=== PATIENT | male | born 1945 | race Caucasian/White ===

== ENCOUNTER 2017-01-20 19:50 | Inpatient (IN) | payer MEDICARE, OTHER ==
--- NOTE | ~2017-01-20 | CO ---
Unit #: [id number] #: [id number] Patient: MARINO BHANDARI [id number] [facility] [address] [facility]. [place], [place] [address] [id number] Tristan MR#: [id number] NAME: MARINO BHANDARI ROOM: 313 Age: 71 Sex: M Admission Date: 01/21/2017 : 1945 Attending Physician: Lenin Florian M.D. Primary Care Physician: Huma Nick M.D. Consultation Date: 01/21/2017 CONSULTATION REPORT REASON FOR CONSULT End-stage renal disease, hyperkalemia. HISTORY OF PRESENT ILLNESS Thank you very much for having us see this patient again. Mr. Marino Bhandari is a 71-year-old male with the history of end-stage renal disease on hemodialysis every Friday, Friday, and Friday under my care who did not show up for dialysis yesterday when I was rounding there. I talked to the nurse there and they called the patient. He apparently had fallen in the bathroom and was very weak and tired and decided not to come. He was going to reschedule for today or tomorrow, at which time I instructed the nurse to give the patient a call and tell him to come to the emergency room at which time he did. Apparently, the patient was in his normal state of health until yesterday morning. He apparently in the bathroom passed out. He hit his head although no injury and woke up very tired and weak, could barely walk, went back to bed until he presented here. He states he started having increased shortness of breath as well yesterday afternoon. No chest pain or chest heaviness. He presented here to the emergency room and was noted to have blood work done at 1830 that showed a potassium of 6.2. I was called at 2:15 a.m., almost 8 hours later, about this patient being admitted. STAT dialysis was ordered and read back to me, and patient still has not had dialysis. The patient states he is still short of breath but a little bit better than it was at 4 a.m. that he had when he had breathing treatments. He denies any chest pain or chest heaviness. He is still very tired and weak. No nausea, one episode of vomiting when he was admitted last night. He denies any fevers, chills or cough. PAST MEDICAL HISTORY 1. History of end-stage renal disease on hemodialysis again every Friday, Friday, and Friday. 2. History of congestive heart failure. 3. History of atrial fibrillation in the past. 4. History of severe hypertension. 5. History of COPD. 6. History of osteoarthritis. 7. History of hyperlipidemia. 8. History of diabetes mellitus. HOME MEDICATIONS Include: 1. Clonidine 0.2 mg b.i.d. 2. Minoxidil 5 mg b.i.d. Unit #: [id number] #: [id number] Patient: MARINO BHANDARI 3. Gabapentin 100 mg b.i.d. 4. Amlodipine 10 mg daily. 5. Metoprolol 100 mg daily. 6. Lisinopril 40 mg daily (?) 7. Pravastatin 40 mg daily. 8. Zolpidem 10 mg h.s. 9. Benadryl p.r.n. for itching. 10. Tramadol 50 mg p.r.n. for headaches. ALLERGIES No known drug allergies. SOCIAL HISTORY Previous smoker, none recently. Occasional alcohol, nothing heavy. He is . FAMILY HISTORY Noncontributory. REVIEW OF SYSTEMS As mentioned in the HPI. Denies any fevers, chills, visual problems, sinus problems. No cough or hemoptysis. No neck pain or neck stiffness. No chest pain or chest heaviness or palpitations. Again, he has had some increased shortness of breath. No severe abdominal pain. One episode of vomiting. He denies any urinary symptoms although does not make a lot of urine. He has had no increased swelling. No recent seizures or strokes or skin rashes. Again, passing out and the weakness severely in his legs is the major complaint. PHYSICAL EXAMINATION VITAL SIGNS: Temperature max is 98.5, pulse 88 to 110, blood pressure 156 to 217 over 51 to 88. HEENT: Normocephalic, atraumatic. Pupils equal, round and reactive to light. Extraocular muscles are intact. Hearing appears to be normal. Mouth is clear, no erythema or exudate. NECK: Supple. No adenopathy. HEART: He appears to have a questionable maybe an irregular rhythm although his EKG did not show this. He has a 2/6 systolic ejection murmur. No rubs were appreciated. LUNGS: Clear bilaterally. No wheezes, rhonchi or rales. ABDOMEN: Bowel sounds positive. Nontender, soft. EXTREMITIES: He has no significant lower extremity swelling. He has a fistula in his right arm with a good thrill. He has a bruise and skin tear on his left upper arm. NEUROLOGIC: He is alert and oriented. Very weak and tired. GENITOURINARY: Deferred. DIAGNOSTIC STUDIES LABORATORY: BUN 91, creatinine 11.1, glucose 132, sodium 138, potassium 6.2, bicarb 19, calcium 9.2, albumin 4.2. INR none done. Hemoglobin 10.9, white count 11,200, platelets 116,000. His urinalysis showed 1+ protein, 250 glucose, 0-2 rbc's, 5-10 wbc's, no bacteria. Urine culture is pending. ASSESSMENT AND PLAN 1. End-stage renal disease. The patient's dialysis was normally supposed to be yesterday. Hyperkalemia. Dialysis was ordered STAT and has not been done yet. I discussed this with dialysis and states Unit #: [id number] #: [id number] Patient: MARINO BHANDARI they are on their way. Will again dialyze as soon as possible and a 2 potassium bath today and recheck a BMP later today to make sure his potassium has improved. Check labs again in the morning. Will remove 3 liters with dialysis today. 2. Hypertension. Blood pressure is elevated upon presentation. Agree with restarting his medications and follow the trends and adjust as indicated. 3. Hyperkalemia, as mentioned above. 4. Syncopal episode, questionable loss of consciousness. I do not know if it is just related to hyperkalemia or if it was related to some other issue. Certainly hyperkalemia can cause severe weakness but usually not at 6 level but again, everyone is different. Any further workup or treatment per primary. Patient did have a CT scan done of his head in the emergency room that showed no acute abnormality. Dictated byViktoriya King M.D. Medardo TD: 01/21/2017 15:49 JOB #: [id number] CONSULTATION REPORT X Anne King MD CONSULTATION REPORT
--- NOTE | ~2017-01-20 | HP ---
Unit #: [id number] #: [id number] Patient: MARINO HAHN [id number] [address] [place], [place] [address] [id number] I MR#: [id number] NAME: MARINO HAHN ROOM: 313 Age: 71 Sex: M Admission Date: 01/21/2017 : 1945 Attending Physician: Raj Busby M.D. Primary Care Physician: Huma Nick M.D. HISTORY AND PHYSICAL CHIEF COMPLAINT Passed out. HISTORY OF PRESENT ILLNESS The patient is a 71-year-old male who states that he arose to go to his dialysis appointment today when he suddenly passed out. He states he fell backwards hitting his head. He states that he has no chest pain, no shortness of breath, no palpitations. Some mild pain in his head and right shoulder, status post fall. PAST MEDICAL HISTORY ESRD, congestive heart failure, hypertension, COPD, diabetes, osteoarthritis. PAST SURGICAL HISTORY The patient denies any significant surgical history. SOCIAL HISTORY The patient stopped smoking two years ago. He states he drinks alcohol occasionally. Denies illegal drug use. FAMILY HISTORY Reviewed and noncontributory in this 71-year-old male. ALLERGIES No known drug allergies. HOME MEDICATIONS Clonidine 0.2 mg p.o. b.i.d.; minoxidil 5 mg b.i.d.; Neurontin 100 mg p.o. b.i.d.; Norvasc 10 mg daily; metoprolol tartrate 100 mg daily; lisinopril 40 mg daily; pravastatin 40 mg daily; zolpidem 10 mg p.o. q.h.s.; hydroxyzine 25 mg p.o. p.r.n. itch; tramadol 50 mg p.o. q.8 hours p.r.n. REVIEW OF SYSTEMS Twelve point review of systems obtained, negative except as in HPI. PHYSICAL EXAMINATION VITAL SIGNS: Temperature 98.5, pulse 96, blood pressure 217/78. GENERAL: 71-year-old male in no acute distress. Appears stated age. HEENT: Pupils equal, round, reactive to light and accommodation. Extraocular movements intact. Mucous membranes dry. NECK: Supple. No JVD or lymphadenopathy. HEART: Regular rate and rhythm. 3/6 systolic ejection murmur. No gallops or rubs. LUNGS: Clear to auscultation bilaterally. Unit #: [id number] #: [id number] Patient: MARINO HAHN ABDOMEN: Nontender and nondistended. Positive bowel sounds. EXTREMITIES: No clubbing, cyanosis or edema. Warm and dry. PSYCH: Alert and oriented x3. Affect is appropriate. NEUROLOGIC: Cranial nerves II-XII intact grossly. Patient moves all extremities equal and with purpose. SKIN: No rashes, bruises or ulcers. MUSCULOSKELETAL: No muscle or joint swelling. He has got right shoulder pain, status post fall. DIAGNOSTIC STUDIES LABORATORY STUDIES: Creatinine 11.1, potassium 6.2, white count 11.2, hemoglobin 10.9, platelets 116. Cardiac enzymes negative x2. IMAGING STUDIES: CT of cervical spine shows no acute abnormalities. CT of head shows no acute abnormalities. ASSESSMENT AND PLAN 1. Syncope, cause is not entirely clear: The patient states it occurred shortly after rising. There is question of a vasovagal episode. Patient is being admitted to telemetry bed and will monitor for arrhythmias. Patient denies chest pain or palpitations. 2. 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 3. Hypertension: I will continue the patient's home medications and the p.r.n. hydralazine. 4. Diabetes: Start the patient on low dose sliding scale insulin. 5. Prophylaxis: Patient was started on SCDs. Dictated by Bruna Mendez/ariadna TD: 01/21/2017 06:39 JOB #: [id number] HISTORY AND PHYSICAL X Raj Busby MD X HISTORY AND PHYSICAL
--- NOTE | ~2017-01-20 | CT52 ---
[facility] A Service of [facility] RADIOLOGY TEXT RESULTS PATIENT: MARINO HAHN LOCATION: C3A 313-01 : [birth year] UNIT #: [id number] AGE: [address]: Lenin Florian MD SEX: M ORDER DR: [id number] [facility] [address] [facility]. [place], [place] [address] [id number] MR#: [id number] Acc #: [id number] NAME: MARINO HAHN : 1945 SEX: M STUDY DATE/TIME: 01/20/2017 19:24 UNIT: BEN ROOM: STUDY DESCRIPTION: CT Cervical Spine Wo Cont Attending Physician: Er Doctor Generic Ordering Physician: Yohan Rivera M.D. Primary Care Physician: Huma Nick M.D. MEDICAL IMAGING REPORT This report is preliminary unless electronic signature is present EXAM Cervical spine CT, no contrast, 01/20/2017 INDICATIONS 71-year-old male with history of trauma, legs gave out this morning, fell backwards in the bathroom, complaining of headache and neck pain. The accident occurred this morning. TECHNIQUE Noncontrast CT of the cervical spine was performed. Sagittal and coronal reformats performed. No comparisons. This CT exam was performed with one or more of the following radiation dose reduction techniques: automatic exposure control, adjustment of mA and/or kV according to patient size, and iterative reconstruction. FINDINGS CT C-SPINE: Dens and lateral masses intact. There is cervical straightening which is nonspecific but may reflect muscle spasm. No acute fracture, alignment is preserved. There is degenerative disc disease at multiple cervical levels, most severe at C6-7. There is probable least mild central canal stenosis at C6-7 but no critical central canal stenosis. Anterior soft tissues unremarkable. There is multilevel facet arthropathy in the aye-ld-fmxhy cervical levels, left greater than right. Multilevel mild uncovertebral spurring. There is mild multilevel foraminal stenosis. Atherosclerotic calcifications are present. Included lung apices clear. Included thyroid unremarkable. IMPRESSION 1. There is motion degradation. These were the best images possible. [facility] A Service of [facility] RADIOLOGY TEXT RESULTS PATIENT: MARINO HAHN LOCATION: C3A 313-01 : [birth year] UNIT #: [id number] AGE: [address]: Lenin Florian MD SEX: M ORDER DR: 2. No acute fracture, malalignment or critical central canal or foraminal stenosis. 3. Multilevel degenerative changes related to facet arthropathy and degenerative disc disease most severe at C6-7. 4. Atherosclerotic disease. Dictated by... Justice Salas M.D. THIS IS AN ELECTRONICALLY VERIFIED REPORT Justice Salas M.D. at 01/21/2017 10:19 AM Qiana TD: 01/21/2017 01:59 JOB #: [id number] MEDICAL IMAGING REPORT COPY
--- NOTE | ~2017-01-20 | CT71 ---
[facility] A Service of [facility] & [facility] RADIOLOGY TEXT RESULTS PATIENT: MARINO HAHN LOCATION: C3A 313-01 : [birth year] UNIT #: [id number] AGE: [address]: Lenin Florian MD SEX: M ORDER DR: [id number] [facility] [address]. [place], [place] [address] [id number] E MR#: [id number] Acc #: [id number] NAME: MARINO HAHN : 1945 SEX: M STUDY DATE/TIME: 01/20/2017 19:24 UNIT: BEN ROOM: STUDY DESCRIPTION: CT Head Wo Contrast Attending Physician: Er Doctor Generic Ordering Physician: Ed Jose Rivera M.D. Primary Care Physician: Huma Nick M.D. MEDICAL IMAGING REPORT This report is preliminary unless electronic signature is present EXAM Head CT without contrast, 01/20/2017 HISTORY Headache and neck pain status post fall backwards in bathroom today after legs gave out this morning. TECHNIQUE This CT exam was performed with one or more of the following radiation dose reduction techniques: Automatic exposure control, adjustment of mA and/or kV according to patient size, and iterative reconstruction. FINDINGS Axial images of the brain obtained without contrast show generalized atrophy. There are chronic ischemic changes seen around the ventricles. There is no evidence of mass effect, hemorrhage, or edema and no midline shift is seen. No acute changes are noted. IMPRESSION Atrophy with chronic ischemic changes. No acute changes are seen. Dictated by... Dudley Huerta M.D. THIS IS AN ELECTRONICALLY VERIFIED REPORT Dduley Huerta M.D. at 01/21/2017 4:18 PM KRT/qiana TD: 01/21/2017 01:55 JOB #: [id number] MEDICAL IMAGING REPORT [facility] A Service [facility] & [facility] RADIOLOGY TEXT RESULTS PATIENT: MARINO HAHN LOCATION: C3A 313-01 : [birth year] UNIT #: [id number] AGE: [address]: Lenin Florian MD SEX: M ORDER DR: COPY
--- NOTE | ~2017-01-20 | CT57 ---
[facility] A Service of [facility] & [facility] RADIOLOGY TEXT RESULTS PATIENT: MARINO HAHN LOCATION: [facility] 313-01 : [birth year] UNIT #: [id number] AGE: [address]: Lenin Florian MD SEX: M ORDER DR: [id number] [facility] [address] [facility]. [place], [place] [address] [id number] I MR#: [id number] Acc #: [id number] NAME: MARINO HAHN : 1945 SEX: M STUDY DATE/TIME: 01/21/2017 16:15 UNIT: C3A PCU ROOM: [facility] STUDY DESCRIPTION: CT Chest Wo Cont Attending Physician: Lenin Florian M.D. Ordering Physician: Raj Busby M.D. Primary Care Physician: Huma Nick M.D. MEDICAL IMAGING REPORT This report is preliminary unless electronic signature is present EXAM CT chest without contrast INDICATIONS Shortness of breath and dyspnea for [address] exam was performed with one or more of the following radiation dose reduction techniques: automatic exposure control, adjustment of mA and/or kV according to patient size, and iterative reconstruction. Axial CT images were obtained from the thoracic inlet through the dome of the diaphragm. No intravenous contrast material was administered. FINDINGS This patient is noted to have small bilateral pleural effusions right greater than left. There is some ground-glass in attenuation seen at the lung bases bilaterally. Some of this may simply reflect some atelectasis, but nonspecific pneumonitis could also have this appearance. The thyroid gland, trachea and esophagus appear unremarkable. There is no pericardial effusion. There are extensive coronary artery calcifications as well as atherosclerotic involvement of the thoracic aorta. Main pulmonary arteries enlarged measuring up to 3.5 cm which can be seen in the setting of pulmonary cereal hypertension. There is bilateral gynecomastia. Shotty mediastinal lymph nodes are noted. There is a 1.5 x 1.4 cm subcarinal node. It appears larger than on the prior CT from January 2015, but certainly could be reactive. 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 Similar findings were present on the prior CT from February 02, 2015. I do not see any acute abnormalities within the upper abdomen. [facility]. [facility] A Service of [facility] RADIOLOGY TEXT RESULTS PATIENT: MARNIO HAHN LOCATION: C3A 313-01 : [birth year] UNIT #: [id number] AGE: [address]: Lenin Florian MD SEX: M ORDER DR: Review of bony windows do not demonstrate any aggressive osseous abnormalities. IMPRESSION 1. Small bilateral pleural effusions, right greater than left, as well as ground glass attenuation seen at the lung bases bilaterally. Some of the appearance may be related to atelectasis, but certainly pneumonitis should be considered given the patient's history. The patient is noted have some prominent mediastinal lymph nodes. These certainly could be reactive given the findings at the lung bases. The patient does have 2 noncalcified pulmonary nodules, one seen within the right upper lobe measures about 6 mm in size while the other is seen in the left lower lobe and measures about 8 millimeters in size. These are indeterminate. I would suggest a short-term CT followup in 6 months to document stability or resolution. 2. Enlargement main pulmonary artery. This finding can be seen in the setting of pulmonary arterial hypertension. 3. 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 Similar findings were present on prior exam from February 02, 2015. These could be better assessed with flow protocol CT or MRI. Dictated by... Rosalie Eubanks M.D. THIS IS AN ELECTRONICALLY VERIFIED REPORT Rosalie Eubanks M.D. at 01/22/2017 4:46 PM AFF/ea TD: 01/21/2017 22:59 JOB #: [id number] MEDICAL IMAGING REPORT COPY
--- NOTE | ~2017-01-20 | DS ---
Unit #: [id number] #: [id number] Patient: MARINO HAHN [id number] [address] [address] [id number] MR#: [id number] NAME: MARINO HAHN ROOM: 313 Age: 71 Sex: M Admission Date: 01/21/2017 : 1945 Discharge Date: 01/23/2017 Attending Physician: Lenin Florian M.D. Primary Care Physician: Huma Nick M.D. DISCHARGE SUMMARY ADMISSION DIAGNOSES 1. Syncope, unclear etiology. 2. Hyperkalemia. 3. Hypertension. 4. Diabetes. DISCHARGE DIAGNOSES 1. Dyspnea. 2. Chest pressure, resolved. 3. Volume overload. 4. End-stage renal disease. 5. Diastolic dysfunction. 6. Chronic obstructive pulmonary disease exacerbation, resolved. 7. Bilateral small pulmonary nodules with recommendation for followup repeat CT of the chest in six months to ensure resolution/stability. SURGICAL DENTAL ASSISTANT Abhilash King M.D., Nephrology. PROCEDURE Hemodialysis, January 21, 2017 and January 22, 2017. DIAGNOSTIC STUDIES LABORATORY: Discharge labs: WBC 10.5, hemoglobin 11.1, hematocrit 33.2, platelets 164,000. Sodium 134, potassium 5.5, chloride 94, CO2 of 22, glucose 178, BUN 103, creatinine 10, eGFR 5.5, calcium 9.1. Preliminary blood culture results x2: No growth after 24 hours. Urine culture: Final no growth at 48 hours. Hepatitis B surface antigen negative. Accu-Cheks today 145-227. Troponin-I 0.03, less than 0.03, less than 0.05. Admission D-dimer, November 29, 2016, of 1627. IMAGING: Bilateral lower extremity duplex Doppler, January 22, 2017: Impression: Negative examination. No evidence of lower extremity DVT. CT of the chest without contrast: Impression: Please refer to complete report. Small bilateral pleural effusions, right greater than left as well as ground glass attenuation seen at lung bases bilaterally. Some prominent mediastinal lymph nodes, could be reactive given findings at the lung bases. Two noncalcified pulmonary nodules, one seen within the right upper lobe, measures 6 mm while the other is seen in the left lower lobe and measures about 8 mm. These are indeterminate. Short-term CT followup in six months to document stability or resolution recommended. Enlargement of main pulmonary artery which can be seen in the setting of pulmonary arterial hypertension. 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 Similar findings present on prior exam on February 02, 2015. C-spine CT noncontrast, January 20, 2017: Impression: Motion degradation. No acute fracture malalignment or critical central canal or foraminal stenosis. Multilevel degenerative changes related to facet arthropathy and degenerative disk disease most severe at C6-7. Atherosclerotic disease. CT of the head without contrast on January 20, 2017: Impression: Atrophy with chronic ischemic changes. No acute changes seen. CARDIOVASCULAR: A 2D echocardiogram: Conclusion: Technically extremely limited study. Left ventricular systolic function normal with digitally estimated EF of 50% to 55%. Aortic valve leaflets were sclerotic with no stenosis. Mild mitral regurgitation. Mild tricuspid regurgitation. Right ventricular systolic pressure 26 mmHg and no echogenic evidence of tamponade. CONDITION Stable. DISPOSITION Home. DISCHARGE MEDICATIONS 1. Prednisone taper (10 mg tab) 40 mg p.o. daily x3 days, then 30 mg p.o. daily x3 days, then 20 mg p.o. daily x3 days, then 10 mg p.o. daily x3 days until finished (#30, no refills). 2. Neurontin 100 mg p.o. b.i.d. 3. Hydroxyzine HCl 25 mg tablet one p.o. q.6 hours p.r.n. itching. 4. Ambien 10 mg p.o. at bedtime as needed for insomnia. 5. Amlodipine besylate 10 mg p.o. every morning. 6. Lopressor 100 mg p.o. every morning. 7. Pravastatin sodium 40 mg p.o. at bedtime. 8. Catapres 0.2 mg p.o. b.i.d. 9. Minoxidil 2.5 mg p.o. daily. 10. Levofloxacin 500 mg tab one p.o. q.48 hours x3 additional doses, prescription written #3, no refills. DISCHARGE INSTRUCTIONS 1. The patient is to call and schedule a followup appointment to see his primary care physician in one to two weeks. 2. He is to follow up for hemodialysis tomorrow at his usual hemodialysis center per orders of Dr. King. The patient is to call and schedule a followup appointment in Dr. King's office per Dr. King's recommendations. 3. The patient is to call and schedule followup appointment with primary care physician for repeat CT of the chest within six months to followup on bilateral pulmonary nodules. 4. Renal diet. HOSPITAL COURSE The patient is a 71-year-old male who presented to [facility] on the dates of admission with chief complaint of "passed out." The patient was evaluated in the emergency department by Dr. Busby. The patient is noted to have syncope of unclear etiology. Given the question of vasovagal episode, the patient was admitted to quality assurance monitor body unit. Unit #: [id number] #: [id number] Patient: MARINO HAHN The patient was noted to be hyperkalemic with potassium of 6.2. WBC 11.2, hemoglobin 10.9, platelet count 116,000. The patient has a history of end-stage renal disease and hemodialysis. Dr. King was consulted for STAT hemodialysis. Please refer to history and physical report for complete details. The patient was evaluated by Dr. King who noted that the patient was typically scheduled for hemodialysis on Friday, Friday, Friday. The patient missed the dialysis the day prior to admission. Orders were given for STAT dialysis. The patient's blood pressure was noted to be elevated and the patient's medications were restarted and trends were followed with adjustments as indicated. Per review of the patient's chart, the patient's home dose of Zestril was held upon admission and the remainder of his other home medications were continued. The patient was placed on a renal diet, strict I and O's. Urinalysis and blood cultures were collected, both of which returned negative for infection. The patient received dialysis on the schedule as dictated above during the hospital course. He has orders to receive hemodialysis again tomorrow at his regular hemodialysis center under orders of Dr. King. He has been evaluated by Dr. King today and cleared for discharge home. The patient's home dose of Zestril will not be restarted prior to discharge. The patient has had no further episodes of syncope. The patient complained of dyspnea without chest pain on the date of admission. The patient was noted to have a history of COPD. A 2D echocardiogram was ordered with results as dictated above. CT of the chest without contrast to rule out pneumonia and PE were ordered. The patient's D-dimer returned elevated as dictated above. The patient was started on IV Solu-Medrol as well as IV Levaquin with pharmacy to dose. DuoNeb were ordered as well. Cardiac enzymes were ordered which returned negative. Bilateral lower extremity duplex venous Doppler study was also performed with interpretation as above. The patient has been evaluated by Dr. Florian today and cleared for discharge home. With regard to CT of the chest report, as dictated above. I have spoken with the patient personally today prior to discharge and informed him about the need to followup for repeat CT scan to ensure resolution/stability of bilateral pulmonary nodules in six months and he has verbalized understanding of this information. Dictated by... Christa Youngblood A.P.R.N. for Bruna Ariza/susie TD: 01/24/2017 10:35 JOB #: [id number] Unit #: [id number] #: [id number] Patient: MARINO HAHN DISCHARGE SUMMARY X Christa Youngblood APRN DISCHARGE SUMMARY
--- NOTE | ~2017-01-20 | US84 ---
[id number] [facility] [address] [place], [place] [address] [id number] MR#: [id number] Acc #: [id number] NAME: MARINO HAHN : 1945 SEX: M STUDY DATE/TIME: 01/22/2017 17:38 UNIT: [id number] PCU ROOM: 313 STUDY DESCRIPTION: US LE Veins Complete Hardy Stdy Attending Physician: Lenin Florian M.D. Ordering Physician: Lenin Florian M.D. Primary Care Physician: Huma Nick M.D. MEDICAL IMAGING REPORT This report is preliminary unless electronic signature is present EXAM Bilateral lower extremity venous duplex 01/22/2017 HISTORY Bilateral lower extremity pain and swelling for 5 days. Evaluate for deep vein thrombosis. TECHNIQUE Venous ultrasound examination of both lower extremities was performed using grayscale, spectral Doppler and color flow Doppler imaging. FINDINGS The examination is negative. There is no evidence of deep venous thrombus from the groin to the lower calf bilaterally. Visualized greater saphenous veins are also patent. IMPRESSION Negative examination. No evidence of lower extremity deep venous thrombosis. Dictated by... Dudley Huerta M.D. THIS IS AN ELECTRONICALLY VERIFIED REPORT Dudley Huerta M.D. at 01/23/2017 8:08 AM PRESTON/casper TD: 01/22/2017 22:51 JOB #: [id number] MEDICAL IMAGING REPORT COPY
--- NOTE | ~2017-01-20 | EKG ---
PATIENT: MARINO HAHN UNIT #: [id number] Ventricular Rate: 91 BPM Atrial Rate: 91 BPM P-R Interval: 286 ms QRS Duration: 116 ms Q-T Interval: 354 ms QTC Calculation(Bezet): 435 ms P Empire: 55 degrees Calculated R Empire: -41 degrees Calculated T Empire: 64 degrees Diagnosis Line: Sinus rhythm with 1st degree A-V block Diagnosis Line: Left axis deviation Diagnosis Line: Abnormal ECG Diagnosis Line: When compared with ECG of 07-OCT-2012 12:57, Diagnosis Line: DE interval has increased Diagnosis Line: Confirmed by MORIS AMAYA MD ([id number]) on Diagnosis Line: 01/21/2017 11:55:35 AM INTERPRETING MD: BALTAZAR
--- NOTE | ~2017-01-20 | EKG ---
PATIENT: MARINO HAHN UNIT #: [id number] Ventricular Rate: 102 BPM Atrial Rate: 117 BPM QRS Duration: 112 ms Q-T Interval: 324 ms QTC Calculation(Bezet): 422 ms P Burnham: 63 degrees Calculated R Burnham: -31 degrees Calculated T Burnham: 64 degrees Diagnosis Line: Sinus tachycardia with 2nd degree A-V block Diagnosis Line: (Mobitz I) Diagnosis Line: Left axis deviation Diagnosis Line: Non-specific intra-ventricular conduction delay Diagnosis Line: Nonspecific T wave abnormality Diagnosis Line: Abnormal ECG Diagnosis Line: When compared with ECG of 20-JAN-2017 18:04, Diagnosis Line: (unconfirmed) Diagnosis Line: Sinus rhythm is now with 2nd degree A-V block Diagnosis Line: (Mobitz I) Diagnosis Line: Confirmed by MORIS AMAYA MD ([id number]) on Diagnosis Line: 01/21/2017 12:12:52 PM INTERPRETING MD: BALTAZAR
[2017-01-20 18:52] LABS: BASOPHIL# 0.1 X10e3 (0-0.3); BASOPHIL% 0.8 % (0-2.5); EOSINOPHIL# 0.3 X10e3 (0-0.7); HEMATOCRIT 32.5 % (38.0-50.0); HEMOGLOBIN 10.9 gm/dL (13.0-16.0); LYMPHOCYTE# 2.1 X10e3 (1.0-3.5); LYMPHOCYTE% 18.4 % (17.0-45.0); MEAN CELL VOLUME 89.9 FL (83-96); MEAN CORPUSCULAR HGB CONC 33.4 g/dL (30-36); MEAN PLATELET VOLUME 8.7 FL (6.5-11.5); MONOCYTE% 8.6 % (3.0-12.0); NEUTROPHIL# 7.7 X10e3 (1.5-7.1); NEUTROPHIL% 69.2 % (40-75); PLATELET COUNT 116 X10e3 (140-420); RED BLOOD COUNT 3.62 X10e (3.90-5.60); RED CELL DISTRIBUTION WIDTH 15.7 % (11.0-15.5); WHITE BLOOD COUNT 11.2 X10e3 (4.0-10.5)
[2017-01-20 18:54] LABS: DIFF IND NO
[2017-01-20 19:00] LABS: POC - CKMB 2.1 ng/mL (0.0-7.9); POC - TROPONIN <0.05 ng/mL (<=0.05)
[2017-01-20 19:20] LABS: ALBUMIN SERUM 4.2 g/dL (3.5-5.0); BILIRUBIN, DIRECT 0.1 mg/dL (0.0-0.2); BILIRUBIN,INDIRECT 0.9 mg/dL (0.0-0.9); BUN/CREATININE RATIO 8.19; CALCIUM SERUM 9.2 mg/dL (8.4-10.2); CREATININE SERUM 11.1 mg/dL (0.6-1.4); GLOM FILT RATE Estimated 4.9 mL/min (>60); PROTEIN TOTAL SERUM 7.3 g/dL (6.0-8.3)
[2017-01-20 19:22] LABS: POTASSIUM 6.2 mmol/L (3.5-5.1)
[~2017-01-20 19:50] MED LIST: ACETAMINOPHEN325 MG PO; ADRENOID CAPSU1 EACH PO; AMARYL PO; AMBIEN10 MG; AMBIEN10 MG PO; AMLODIPINE BESYL5 MG PO; APRESOLINE PO; ARTIFICIAL TEAR15 M3 OP; ASPIRIN81 M1; ASPIRIN81 M1 PO; AZITHROMYCIN250 MG PO; B6100 MG PO; CLONIDINE HCL0.1 MG PO; CLONIDINE PO; CO Q-10 100 MG1 EACH PO; CO Q10100 MG PO; CO-ENZYME Q-1010 MG PO; COQ-10100 MG PO; CYANOCOBALAM1000 MCG PO; FAMCICLOVIR250 MG PO; FAMVIR250 MG PO; FISH OIL 1,0001 CA2 PO; FISH OIL 1,001000 M1 PO; FISH OIL 1,001000 MG PO; FISH OIL 10001000 MG PO; FLAGYL PO; FUROSEMIDE40 MG PO; GNP B-COMPLEX1 EACH PO; HUMULIN N100 UNITS/ INJ; HYDRALAZINE HC100 MG PO; HYDROCODON-ACE1 EACH PO; LASIX PO; LEVAQUIN250 MG PO; LOPRESSOR PO; LORTAB 7.51 TAB 7.5/ PO; METOPROLOL SUC100 MG PO; METOPROLOL TAR100 MG PO; NEURONTIN100 MG PO; NOVOLIN 70/30 V10 M1 SUBQ; NOVOLOG7030; PERCOCET 51 UDTAB 5/ PO; PHENERGAN25 MG PO; PRAVASTATIN SOD40 MG PO; PREDNISONE PO; SOD BICARBONATE PO; TUMS500 MG PO; VITAL-D RX TABL1 TAB PO; VITAMIN B 6 PO; VITAMIN B-1100 M1 PO; VITAMIN B-121000 MCG PO; ZANAFLEX4 M1 PO; ZESTRIL40 MG PO; [UNRECOGNIZED DRUG - OTHER] PO
[2017-01-20 20:20] LABS: URINE SOURCE CLEAN CATCH
[2017-01-20 20:40] LABS: CULTURE INDICATED? YES; URBCS1 AUWI 0-2 /[HPF] (0-2); URINE APPEARANCE CLEAR; URINE BACTERIA AUWI NEG (NEGATIVE); URINE BILIRUBIN NEG (NEG); URINE BLOOD 1+ (NEG); URINE COLOR YELLOW; URINE GLUCOSE 250 MG/DL (NEG); URINE KETONE NEG (NEG); URINE LEUKOCYTE ESTERASE NEG (NEG); URINE NITRATE NEG (NEG); URINE PROTEIN 1+ (NEG); URINE SPECIFIC GRAVITY 1.014 (1.003-1.035); URINE SQUAMOUS EPITHELIAL CELL NONE SEEN /[HPF]; URINE UROBILINOGEN 0.2 MG/DL (NEG)
[2017-01-20 21:10] LABS: POC - CKMB 1.9 ng/mL (0.0-7.9); POC - TROPONIN <0.05 ng/mL (<=0.05)
[2017-01-21 07:56] LABS: BASOPHIL% 0.4 % (0-2.5); EOSINOPHIL% 0.2 % (0.0-7.0); HEMATOCRIT 31.3 % (38.0-50.0); HEMOGLOBIN 10.5 gm/dL (13.0-16.0); LYMPHOCYTE# 1.2 X10e3 (1.0-3.5); LYMPHOCYTE% 8.9 % (17.0-45.0); MEAN CELL VOLUME 90.6 FL (83-96); MEAN CORPUSCULAR HEMOGLOBIN 30.4 PG (28-34); MEAN CORPUSCULAR HGB CONC 33.5 g/dL (30-36); MEAN PLATELET VOLUME 8.7 FL (6.5-11.5); MONOCYTE# 1.3 X10e3 (0-1.0); NEUTROPHIL# 10.7 X10e3 (1.5-7.1); NEUTROPHIL% 80.5 % (40-75); PLATELET COUNT 107 X10e3 (140-420); RED BLOOD COUNT 3.46 X10e (3.90-5.60); RED CELL DISTRIBUTION WIDTH 15.6 % (11.0-15.5); WHITE BLOOD COUNT 13.3 X10e3 (4.0-10.5)
[2017-01-21 08:00] LABS: DIFF IND NO
[2017-01-21 09:19] LABS: BUN/CREATININE RATIO 8.08; CALCIUM SERUM 8.8 mg/dL (8.4-10.2); GLOM FILT RATE Estimated 4.5 mL/min (>60)
[2017-01-21 09:31] LABS: POTASSIUM 6.5 mmol/L (3.5-5.1)
[2017-01-21 11:10] LABS: %MB 1.4 % (0.0-4.0); MB 2.7 ng/ml
[2017-01-21 18:21] LABS: BUN/CREATININE RATIO 6.08; GLOM FILT RATE Estimated 8.5 mL/min (>60); POTASSIUM 5.3 mmol/L (3.5-5.1)
[2017-01-21 18:22] LABS: CREATININE SERUM 6.9 mg/dL (0.6-1.4)
[2017-01-21 18:41] LABS: MB 2.2 ng/ml
[2017-01-22 09:53] LABS: HEMOGLOBIN 10.8 gm/dL (13.0-16.0); MEAN CELL VOLUME 90.1 FL (83-96); MEAN CORPUSCULAR HEMOGLOBIN 30.5 PG (28-34); MEAN CORPUSCULAR HGB CONC 33.8 g/dL (30-36); MEAN PLATELET VOLUME 10.1 FL (6.5-11.5); RED BLOOD COUNT 3.55 X10e (3.90-5.60); RED CELL DISTRIBUTION WIDTH 15.6 % (11.0-15.5); WHITE BLOOD COUNT 6.7 X10e3 (4.0-10.5)
[2017-01-22 10:38] LABS: ALBUMIN SERUM 3.8 g/dL (3.5-5.0); BILIRUBIN,TOTAL 0.8 mg/dL (0.2-2.0); BUN/CREATININE RATIO 7.38; CALCIUM SERUM 9.2 mg/dL (8.4-10.2); CREATININE SERUM 8.4 mg/dL (0.6-1.4); GLOM FILT RATE Estimated 6.7 mL/min (>60); MAGNESIUM 2.2 mg/dL (1.6-3.0); PHOSPHOROUS 6.6 mg/dL (2.5-4.6); POTASSIUM 5.3 mmol/L (3.5-5.1); PROTEIN TOTAL SERUM 7.1 g/dL (6.0-8.3)
[2017-01-23 07:39] LABS: HEMATOCRIT 33.2 % (38.0-50.0); HEMOGLOBIN 11.1 gm/dL (13.0-16.0); MEAN CELL VOLUME 90.5 FL (83-96); MEAN CORPUSCULAR HEMOGLOBIN 30.2 PG (28-34); MEAN CORPUSCULAR HGB CONC 33.4 g/dL (30-36); RED BLOOD COUNT 3.67 X10e (3.90-5.60); RED CELL DISTRIBUTION WIDTH 15.6 % (11.0-15.5)
[2017-01-23 07:45] LABS: WHITE BLOOD COUNT 10.5 X10e3 (4.0-10.5)
[2017-01-23 08:11] LABS: CALCIUM SERUM 9.1 mg/dL (8.4-10.2); GLOM FILT RATE Estimated 5.5 mL/min (>60)
[2017-01-23 08:24] LABS: BUN/CREATININE RATIO 10.3
[2017-01-23 08:27] LABS: POTASSIUM 5.5 mmol/L (3.5-5.1)
[2017-01-23] MEDS ORDERED: PREDNISONE50 MG PO (17:20)
[2017-01-23] MEDS ORDERED: PREDNISONE5 MG PO ×2 (17:21→17:23)
[2017-01-23] MEDS ORDERED: PREDNISONE1 MG PO (17:22)
[2017-01-23] MEDS ORDERED: LEVAQUIN PO (17:28)
[2017-04-30] MEDS ORDERED: ZESTRIL40 MG PO (11:37)
[2017-04-30] MEDS ORDERED: CALCIUM ACETAT667 M2 PO (11:38)
[2017-05-01] MEDS ORDERED: NEURONTIN100 MG PO (05:25)
[2017-05-01] MEDS ORDERED: HYDROXYZINE HCL25 M1 PO (05:27)
[2017-05-01] MEDS ORDERED: MINOXIDIL2.5 MG PO (09:45)
[2017-05-01] MEDS ORDERED: TRAMADOL HCL50 M1 PO (11:37)
[2017-05-01] MEDS ORDERED: AMLODIPINE BESY10 MG PO (14:41)
[2017-05-01] MEDS ORDERED: PRAVASTATIN SOD40 MG PO (14:41)
[2017-05-01] MEDS ORDERED: METOPROLOL TAR100 MG PO (14:42)
[2017-05-01] MEDS ORDERED: AMBIEN10 MG PO (15:33)
[2017-05-01] MEDS ORDERED: CLONIDINE PO (15:36)
== END 2017-01-23 18:15 | disposition home or self-care (01) | DRG 190 ==
LOC: CED 19:50 → CEDOF 01-21 01:24 → C3A PCU 01-21 05:21
PROVIDERS: Emergency Medicine; Family Medicine; Internal Medicine; Internal Medicine Nephrology
PROC: 5A1D60Z (ICD-10-PCS; principal; 2017-01-21)
PROC: B24BZZZ Ultrasonography of Heart with Aorta (ICD-10-PCS; 2017-01-21)
DX: J44.1 Chronic obstructive pulmonary disease with (acute) exacerbation (principal); N18.6 End stage renal disease; I13.2 Hypertensive heart and chronic kidney disease with heart failure and with stage 5 chronic kidney disease, or end stage renal disease; E11.22 Type 2 diabetes mellitus with diabetic chronic kidney disease; J90 Pleural effusion, not elsewhere classified; I07.1 Rheumatic tricuspid insufficiency; E87.5 Hyperkalemia; I50.30 Unspecified diastolic (congestive) heart failure; Z99.2 Dependence on renal dialysis; Z87.891 Personal history of nicotine dependence; R91.8 Other nonspecific abnormal finding of lung field; N28.1 Cyst of kidney, acquired; M50.323 Other cervical disc degeneration at C6-C7 level; I34.0 Nonrheumatic mitral (valve) insufficiency; R55 Syncope and collapse; M19.90 Unspecified osteoarthritis, unspecified site; E78.5 Hyperlipidemia, unspecified; D64.9 Anemia, unspecified; Z91.81 History of falling
CPT/HCPCS: 36415; 70450; 71250; 72125; 80048; 80053; 80076; 81003; 82550; 82553; 82947; 83735; 84100; 84484; 85025; 85027; 85379; 87040; 87086; 87340; 93005; 93306; 93970; 94640; 94760; 99285; J0360; J0885; J1644; J1815; J1956; J2920

== ENCOUNTER 2017-03-17 02:04 | Emergency (ER) | payer MEDICARE, OTHER ==
[~2017-03-17 02:04] MED LIST changes: +LEVAQUIN PO; +PREDNISONE1 MG PO; +PREDNISONE5 MG PO; +PREDNISONE50 MG PO
[2017-04-30] MEDS ORDERED: ZESTRIL40 MG PO (11:37)
[2017-04-30] MEDS ORDERED: CALCIUM ACETAT667 M2 PO (11:38)
[2017-05-01] MEDS ORDERED: NEURONTIN100 MG PO (05:25)
[2017-05-01] MEDS ORDERED: HYDROXYZINE HCL25 M1 PO (05:27)
[2017-05-01] MEDS ORDERED: MINOXIDIL2.5 MG PO (09:45)
[2017-05-01] MEDS ORDERED: TRAMADOL HCL50 M1 PO (11:37)
[2017-05-01] MEDS ORDERED: PRAVASTATIN SOD40 MG PO (14:41)
[2017-05-01] MEDS ORDERED: AMLODIPINE BESY10 MG PO (14:41)
[2017-05-01] MEDS ORDERED: METOPROLOL TAR100 MG PO (14:42)
[2017-05-01] MEDS ORDERED: AMBIEN10 MG PO (15:33)
[2017-05-01] MEDS ORDERED: CLONIDINE PO (15:36)
== END 2017-03-17 03:30 | disposition home or self-care (01) ==
LOC: CED 02:04
DX: J02.9 Acute pharyngitis, unspecified (principal); E11.9 Type 2 diabetes mellitus without complications; I12.0 Hypertensive chronic kidney disease with stage 5 chronic kidney disease or end stage renal disease; N18.6 End stage renal disease
CPT/HCPCS: 87651; 99283

== ENCOUNTER → 2017-05-01 | Outpatient (CLI) | payer MEDICARE, OTHER ==
[~2017-05-01] MED LIST changes: +AMLODIPINE BESY10 MG PO; +CALCIUM ACETAT667 M2 PO; +HYDROXYZINE HCL25 M1 PO; +MINOXIDIL2.5 MG PO; +TRAMADOL HCL50 M1 PO
--- NOTE | ~2017-05-01 | OR ---
Unit #: [id number] #: [id number] Patient: MARINO HAHN [id number] [address] [address] [id number] MR#: [id number] NAME: MARINO HAHN ROOM: Date of Procedure: 05/01/2017 Admission Date: 05/01/2017 Surgeon: Josué Lindsay M.D. : 1945 Attending Physician: Josué Lindsay M.D. Primary Care Physician: Huma Nick M.D. OPERATIVE REPORT PREOPERATIVE DIAGNOSIS Enlarging right arm fistula. POSTOPERATIVE DIAGNOSIS Enlarging right arm fistula. PROCEDURES PERFORMED 1. Right brachiocephalic fistula fistulogram. 2. Central venogram. ANESTHESIA Local and sedation. Total time of monitoring sedation, 30 minutes. COMPLICATIONS None. ESTIMATED BLOOD LOSS 5 mL. CONTRAST USED Isovue 20 mL. INDICATIONS FOR PROCEDURE The patient is a 71-year-old gentleman with end-stage renal disease. He currently has a right brachiocephalic fistula that has been used well for dialysis, but has enlarged slightly near the antecubital fossa. He and his nephrology and dialysis teams have been concerned with that and he was seen in the office. He was recommended a fistulogram to evaluate for potential stenotic segments that could be treated. He understood the planned procedure including the risks and benefits, and wishes to proceed. DESCRIPTION OF PROCEDURE The patient was taken to the Interventional Radiology suite and placed on the IR table in the supine position. Following the initiation of continuous pulse, pulse oximetry, and blood pressure monitoring by nursing staff, he was given Versed and fentanyl for sedation. Total time of monitoring sedation was 30 minutes. The right arm was then prepped and draped in normal standard manner. The fistula was identified and 1% lidocaine was infused in the fistula near the antecubital fossa. It was cannulated with the micro-access needle followed by placement of a wire and a micro-access 4-Bulgarian sheath. Via the sheath, a hand injection of contrast was used for fistulogram of the entire right upper extremity Unit #: [id number] #: [id number] Patient: MARINO HAHN brachiocephalic fistula. Using hand injection of contrast, central venogram was also performed. The image intensifier was then rotated to cranial 25-degree projection and a followup fistulogram was performed to the mid-arm fistula. Upon completion, the sheath was removed and pressure was held on the site for 5 minutes with no bleeding then noted. Dressing was applied and the procedure was terminated. The patient tolerated the procedure well and was taken to the recovery room in stable condition. All needle, sponge and instrument counts were correct at the end of the case. FINDINGS The right brachiocephalic fistula is patent throughout its course from the anastomosis to cephalic-subclavian junction. There are enlarged areas of the fistula near the antecubital fossa as well as the mid-arm. There was a connecting segment between the two large areas that is much smaller in caliber than the two previously discussed areas; however, it is roughly 6 to 7 mm in diameter. The axillary vein as visualized, subclavian vein, and superior vena cava were widely patent with good inflow to the heart. Dictated by... Bruna Garces/rosario TD: 05/02/2017 02:08 JOB #: [id number] OPERATIVE REPORT Page 1 of 1 X Josué Lindsay MD X PROCEDURE OPERATIVE NOTE
== END | disposition home or self-care (01) ==
LOC: CIVR 06:05
DX: T82.898A Other specified complication of vascular prosthetic devices, implants and grafts, initial encounter (principal); I12.0 Hypertensive chronic kidney disease with stage 5 chronic kidney disease or end stage renal disease; N18.6 End stage renal disease; Z99.2 Dependence on renal dialysis
CPT/HCPCS: C1894; J2250; J3010; Q9967